=== PATIENT | male | born 1990 | race American Indian/Alaskan Native ===

== ENCOUNTER 2017-03-06 23:25 | Emergency (ER) | payer OTHER ==
[2017-03-07] MEDS ORDERED: DELTASONE PO ONE (09:00)
[2017-03-07] MEDS ORDERED: MOTRIN PO ONE (09:00)
--- NOTE | 2017-03-07 09:04 | Emergency Department Report ---
Minor Respiratory - HPI Chief Complaint: Fever Stated Complaint: FLU SX Time Seen by Provider: 03/07/17 08:34 Duration: 2 Days Severity: mild Minor Respiratory: Yes Rhinorrhea, Yes Sore Throat, Yes Able to Tolerate Fluids , Yes Cough, Yes Fever, No Ear Pain, No Sick Contacts, No Hemoptysis, No Chest Pain, No Shortness of Breath Other History: Patient is a 26-year-old male who presents to ED with no prominent condition complaining of generalized body aches, cough and fever 2 days. Patient states yesterday his symptoms can. Patient describes cough as intermittent, dry, nonproductive. Patient states she has taken no medication. Patient denies nausea/vomiting/abdominal pain/chest pains or shortness of breath /dizziness/headache/ear pain. ED Review of Systems ROS: Stated complaint: FLU SX Other details as noted in HPI Constitutional: fever. denies: chills Eyes: denies: eye pain, eye discharge, vision change ENT: denies: ear pain, throat pain Respiratory: cough. denies: shortness of breath, wheezing Cardiovascular: denies: chest pain, palpitations Endocrine: no symptoms reported Gastrointestinal: denies: abdominal pain, nausea, diarrhea Genitourinary: denies: urgency, dysuria Musculoskeletal: denies: back pain, joint swelling, arthralgia Skin: denies: rash, lesions Neurological: denies: headache, weakness, paresthesias Psychiatric: denies: anxiety, depression Hematological/Lymphatic: denies: easy bleeding, easy bruising ED Past Medical Hx - Past Medical History Previous Medical History?: No - Surgical History Past Surgical History?: No - Social History Smoking Status: Never Smoker Substance Use Type: None - Medications Home Medications: Home Medications Medication Instructions Recorded Confirmed Last Taken Type D-Methorphan/PE/Acetaminophen 1 each PO Q6H #30 tablet 03/07/17 Unknown Rx [Tylenol Cold Max Day Caplet] Ibuprofen [Motrin 800 MG tab] 800 mg PO Q8H #30 tablet 03/07/17 Unknown Rx guaiFENesin [Robitussin] 200 mg PO Q6H #24 tab 03/07/17 Unknown Rx Minor Respiratory Exam - Exam General: Vital signs noted. No distress. Alert and acting appropriately. HEENT: Yes Moist Mucous Membranes, No Pharyngeal Erythema, No Pharyngeal Exudates, No Rhinorrhea, No Conjuctival Injection, No Frontal Tenderness, No Maxillary Tenderness Ear: Neither TM Bulge, Neither TM Erythema, Neither EAC Pain, Neither EAC Discharge Neck: Yes Supple, No Adenopathy Lungs: Yes Good Air Exchange, No Wheezes, No Ronchi, No Stridor, No Cough, No Labored Respirations, No Retractions, No Use of Accessory Muscles, No Other Abnormal Lung Sounds Heart: Yes Regular, No Murmur Abdomen: Yes Normal Bowel Sounds, No Tenderness, No Peritoneal Signs Skin: No Rash, No Edema Neurologic: Alert and oriented, no deficits. Musculoskeletal: Unremarkable. ED Course Vital Signs 03/07/17 00:33 Temperature 100.8 F H Pulse Rate 107 H Respiratory 18 Rate Blood Pressure 123/72 O2 Sat by Pulse 97 Oximetry ED Medical Decision Making - Medical Decision Making 26-year-old male presents with flulike symptoms. Fever resolved, during the ED stay. Influenza A, extensive B, rapid strep test all negative I discussed this with the patient Discussed with patient symptomatic relief with [id number] medications. Discussed continue Tylenol and Motrin as needed for fever and pain. Discussed increase fluids and diet intake. Discussed rest much needed. Discussed daily vitamin C for immune booster. Discussed follow-up with [facility] Phys[facility] in 3-5 days. Patient verbally states she understands and will comply the following instructions and follow-up Vital signs stable. Patient is in no acute distress Critical care attestation.: If time is entered above; I have spent that time in minutes in the direct care of this critically ill patient, excluding procedure time. ED Disposition Clinical Impression: Viral syndrome URI (upper respiratory infection) Qualifiers: URI type: unspecified URI Qualified Code(s): J06.9 - Acute upper respiratory infection, unspecified Disposition: - TO HOME OR SELFCARE Is pt being admited?: No Does the pt Need Aspirin: No Condition: Stable Instructions: Viral Syndrome (ED), Upper Respiratory Infection (ED), Cold Symptoms (ED) Additional Instructions: Make sure to follow up with the primary care physician as discussed. Take all your medications as you've been prescribed. If you have any worsening symptoms or develop new symptoms please return to ED immediately. Prescriptions: D-Methorphan/PE/Acetaminophen [Tylenol Cold Max Day Caplet] 1 each PO Q6H #30 tablet guaiFENesin [Robitussin] 200 mg PO Q6H #24 tab Ibuprofen [Motrin 800 MG tab] 800 mg PO Q8H #30 tablet Referrals: GLENYS MAJOR MD [Primary Care Provider] - 3-5 Days Forms: Accompanied Note, Work/School Release Form(ED) Time of Disposition: 09:07
[2017-03-07 09:28] VITALS: BP 132/84
[2017-03-07] MEDS ORDERED: ROBITUSSIN PO ONE (09:30)
== END 2017-03-07 09:49 | disposition home or self-care (01) ==
LOC: ED 23:25
DX: B34.9 Viral infection, unspecified (principal); J06.9 Acute upper respiratory infection, unspecified
CPT/HCPCS: 87400; 99282; J7512